=== PATIENT | female | born 1995 | race Caucasian/White ===

== ENCOUNTER 2017-12-09 17:04 | Emergency (ER) | payer SELFPAY ==
[~2017-12-09 17:04] MED LIST: IBUP-232 PO; PREN1CAP20; SENN1TAB PO
[2017-12-09 17:06] VITALS: BP 140/71; PULSE 110; RESP 14; TEMP 97.8; O2SAT 98
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
[2017-12-09 18:14] LABS: AUTOMATED NEUTROPHIL # 8.5 TH/MM3 (1.8-7.7); BASOPHIL # 0.1 TH/MM3 (0-0.2); BASOPHIL % 0.7 % (0.0-2.0); EOSINOPHIL # 0.1 TH/MM3 (0-0.4); EOSINOPHIL % 0.9 % (0.0-4.0); HEMATOCRIT 34.3 % (35.0-46.0); HEMOGLOBIN 12.3 GM/DL (11.6-15.3); LYMPH % 18.2 % (9.0-44.0); LYMPHOCYTE # 2.1 TH/MM3 (1.0-4.8); MEAN CELL VOLUME 84.1 FL (80.0-100.0); MEAN CORPUSCULAR HEMOGLOBIN 30.3 PG (27.0-34.0); MEAN PLATELET VOLUME 7.5 FL (7.0-11.0); MONO % 6.8 % (0.0-8.0); MONOCYTE # 0.8 TH/MM3 (0-0.9); NEUT % 73.4 % (16.0-70.0); PLATELET COUNT 346 TH/MM3 (150-450); RED BLOOD COUNT 4.07 MIL/MM3 (4.00-5.30); RED CELL DISTRIBUTION WIDTH 15.9 % (11.6-17.2); WHITE BLOOD COUNT 11.6 TH/MM3 (4.0-11.0)
--- NOTE | 2017-12-09 18:26 | RADRPT ---
EXAM DATE/TIME: 12/09/2017 18:00 [facility] COMPARISON: No previous studies available for comparison. INDICATIONS : Patient complains of chest palpitations. MEDICAL HISTORY : None. SURGICAL HISTORY : None. ENCOUNTER: Initial ACUITY: 1 day PAIN SCORE: 0/10 LOCATION: chest FINDINGS: The lungs are clear without infiltrate, nodule, or mass. There is no appreciable pleural effusion fo r technique. Heart and mediastinum are unremarkable. CONCLUSION: No acute cardiopulmonary disease. Isaías Deleon MD on December 09, 2017 at 18:21 Board Certified Radiologist. This report was verified electronically.
--- NOTE | 2017-12-09 18:32 | RADRPT ---
EXAM DATE/TIME: 12/09/2017 18:03 [facility] COMPARISON: No previous studies available for comparison. INDICATIONS : Patient complains of left knee pain. MEDICAL HISTORY : None. SURGICAL HISTORY : None. ENCOUNTER: Initial ACUITY: 2 days PAIN SCORE: 6/10 LOCATION: Left Knee FINDINGS: No definite fractures, or dislocations are identified. No definite lytic or sclerotic lesion is seen . The joint spaces are well maintained. Tiny joint effusion is seen. CONCLUSION: Unremarkable study except for a tiny joint effusion. Isaías Deleon MD on December 09, 2017 at 18:30 Board Certified Radiologist. This report was verified electronically.
[2017-12-09 18:37] LABS: ALBUMIN 3.4 GM/DL (3.4-5.0); ALT (GPT) 42 U/L (10-53); AST (GOT) 26 U/L (15-37); BLOOD UREA NITROGEN 8 MG/DL (7-18); CHLORIDE 104 MEQ/L (98-107); CREATININE 0.78 MG/DL (0.50-1.00); GLOMERULAR FILTRATION RATE 93 ML/MIN (>89); GLUCOSE,RANDOM 89 MG/DL (74-106); SODIUM (NA) 142 MEQ/L (136-145)
[2017-12-09 18:40] LABS: ALKALINE PHOSPHATASE 98 U/L (45-117); TOTAL BILIRUBIN ADULT 0.3 MG/DL (0.2-1.0); TOTAL PROTEIN 7.3 GM/DL (6.4-8.2)
[2017-12-09] MEDS ORDERED: DIPH25CA PO (19:05)
[2017-12-09] MEDS ORDERED: PERM5CRE11 TOPICAL (19:05)
[2017-12-09 19:47] VITALS: PULSE 97; RESP 18; O2SAT 100
== END 2017-12-09 19:55 | disposition home or self-care (01) ==
LOC: NEPC 17:04
DX: F15.90 Other stimulant use, unspecified, uncomplicated (principal); F12.90 Cannabis use, unspecified, uncomplicated; F19.90 Other psychoactive substance use, unspecified, uncomplicated; R21 Rash and other nonspecific skin eruption; S80.212A Abrasion, left knee, initial encounter; V19.88XA Pedal cyclist (driver) (passenger) injured in other specified transport accidents, initial encounter; Y93.55 Activity, bike riding; F90.9 Attention-deficit hyperactivity disorder, unspecified type; F31.9 Bipolar disorder, unspecified; F17.200 Nicotine dependence, unspecified, uncomplicated
CPT/HCPCS: 71045; 73560; 80053; 83605; 84703; 85025; 85652; 87040; 99284